=== PATIENT | female | born 1950 | race Caucasian/White ===

== ENCOUNTER → 2017-12-17 | Outpatient (CLI) | payer MEDICARE, OTHER ==
[~2017-12-17] MED LIST: DEN60I SUBQ; DENOSUMAB 60 MG/1 ML SYR SUBQ ONE; IBUP-56 PO
[2017-12-17 11:04] VITALS: BP 117/76
== END ==
LOC: SPU 07:43
PROVIDERS: ATTEND Family Medicine
DX: M81.0 Age-related osteoporosis without current pathological fracture (principal)
CPT/HCPCS: 96372; J0897

== ENCOUNTER → 2018-04-13 | Outpatient (CLI) | payer MEDICARE, OTHER ==
[~2018-04-13] MED LIST changes: -DENOSUMAB 60 MG/1 ML SYR SUBQ ONE
--- NOTE | 2018-04-14 16:06 | RADIOLOGY IMAGING REPORT ---
FACILITY: [facility] [place] PATIENT NAME: BENNETT CHAO : [id number] MR: [id number] V: [id number] EXAM DATE: ORDERING PHYSICIAN: PATTI ESTEVEZ TECHNOLOGIST: Flora Crum PROCEDURE:BILATERAL DIGITAL SCREENING MAMMOGRAM WITH CAD ASSISTED INTERPRETATION & 3D TOMOSYNTHESIS COMPARISON:Prior mammograms INDICATIONS:screening FINDINGS: The breasts are heterogeneously dense. Several vascular calcifications are scattered bilaterally. A small benign appearing nodularity is present in the Right retroareolar region, unchanged. DIAGNOSTIC CATEGORY 1--NEGATIVE. RECOMMENDATIONS: ROUTINE MAMMOGRAM AND CLINICAL EVALUATION IN 1 YR. IMPRESSION: BIRADS 1: Negative. Dictated by: Akin Galvan M.D. on 04/14/2018 at 10:54 Transcribed by: WILLIAM on 04/14/2018 at 11:01 Approved by: Akin Galvan M.D. on 04/14/2018 at 16:05 [facility]
== END ==
LOC: MAMO 00:27
PROVIDERS: ATTEND Nurse Practitioner Family
DX: Z12.31 Encounter for screening mammogram for malignant neoplasm of breast (principal)
CPT/HCPCS: 77063; 77067

== ENCOUNTER → 2018-08-09 | Outpatient (CLI) | payer MEDICARE, OTHER ==
[~2018-08-09] MED LIST changes: +DENOSUMAB 60 MG/1 ML SYR SUBQ ONE
[2018-08-09 08:26] VITALS: BP 98/74
== END ==
LOC: SPU 07:13
PROVIDERS: ATTEND Nurse Practitioner Family
DX: M81.0 Age-related osteoporosis without current pathological fracture (principal)
CPT/HCPCS: 96372; J0897